=== PATIENT | female | born 1970 | race Caucasian/White ===

== ENCOUNTER 2017-01-27 10:20 | Day surgery (SDC) | payer OTHER ==
--- NOTE | 2017-01-23 09:20 | HP ---
Admitting History and Physical - Primary Care Physician PCP: Kayla Pederson - Admission Chief Complaint: left breast atypia History of Present Illness: 46 yo female noted to have a left palpable mass which corresponded to a left 1 oclock 1.1 cm mass on US. 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 Patient is now presenting for WE of this lesion with NL. History Source: Patient Limitations to Obtaining History: No Limitations - Past Medical History Psych: Yes: Anxiety - Past Surgical History Past Surgical History: Yes: Cholecystectomy (1998), Tubal Ligation (1998) Additional Past Surgical History: bilateral breast augmentation 2014 Home Medications - Allergies Allergies/Adverse Reactions: Allergies Allergy/AdvReac Type Severity Reaction Status Date / Time acetaminophen [From Percocet] Allergy Verified 01/23/17 09:23 oxycodone HCl [From Percocet] Allergy Verified 01/23/17 09:23 Penicillins Allergy Verified 01/23/17 09:23 - Home Medications Home Medications (free text): wellbutrin XL Family Disease History - Family Disease History Family Disease History: CA: Father (hepatic/lung cancer) Other Family History: maternal aunt breast cancer at 48. maternal aunt supervisor detasseling crew cancer ?ovarian cancer. maternal uncle lymphoma. paternal GM leukemia Review of Systems - Review of Systems Constitutional: reports: No Symptoms Cardiovascular: reports: No Symptoms Respiratory: reports: No Symptoms Physical Examination Constitutional: Yes: Well Nourished Cardiovascular: Yes: WNL Respiratory: Yes: WNL Breast(s): Yes: Other (Left axillary tail smooth mass approx 1 cm.) Problem List - Problems (1) Flat epithelial atypia of left breast Code(s): N60.82 - OTHER BENIGN MAMMARY DYSPLASIAS OF LEFT BREAST Assessment/Plan left breast WE with NL
[2017-01-23 16:21] VITALS: BMI 22.1
[2017-01-27] MEDS ORDERED: ONDANSETRON 4 MG/2 ML VIAL IVPB PRN (12:23)
[2017-01-27] MEDS ORDERED: KETOROLAC TROMETHAMINE 30 MG/1 ML VIAL IVPUSH PRN (12:23)
[2017-01-27] MEDS ORDERED: DEXTROSE 5%-0.45% SALINE 1,000 ML IV SCH (12:30)
[2017-01-27] MEDS ORDERED: LIDOCAINE HCL 1%, 10 MG/ML (20ML VIAL) ONE (12:39)
[2017-01-27] MEDS ORDERED: BUPIVACAINE HCL/PF 2.5 MG/ML - 30 ML VIAL IJ ONE (12:39)
[2017-01-27] MEDS ORDERED: MIDAZOLAM HCL 2 MG/2 ML SINGLE DOSE VIAL ONE (12:40)
[2017-01-27] MEDS ORDERED: PROPOFOL 20 ML ONE ×2 (13:02)
[2017-01-27] MEDS ORDERED: SUCCINYLCHOLINE CHLORIDE 200 MG/10 ML VIAL ONE (13:02)
[2017-01-27] MEDS ORDERED: ceFAZolin SODIUM 1 GM VIAL ONE (13:13)
[2017-01-27] MEDS ORDERED: LIDOCAINE HCL 1%, 10 MG/ML (50 mL VIAL) IJ ONE (14:05)
[2017-01-27] MEDS ORDERED: ONDANSETRON 4 MG/2 ML VIAL ONE (14:13)
[2017-01-27] MEDS ORDERED: KETOROLAC TROMETHAMINE 30 MG/1 ML VIAL ONE (14:13)
[2017-01-27] MEDS ORDERED: ONDANSETRON 4 MG/2 ML VIAL IVPUSH PRN (14:14)
[2017-01-27] MEDS ORDERED: PROMETHAZINE HCL 25 MG/1 ML VIAL IVPUSH PRN (14:14)
[2017-01-27] MEDS ORDERED: oxyCODONE HCL 5 MG TABLET PO PRN (14:14)
[2017-01-27] MEDS ORDERED: BUPIVACAINE HCL/PF 0.25% (2.5MG/ML) 10 ML VIAL IJ ONE (14:14)
[2017-01-27] MEDS ORDERED: LACTATED RINGERS SOLUTION 1,000 ML IV SCH (14:15)
[2017-01-27] MEDS ORDERED: oxyCODONE HCL 5 MG TABLET ONE (17:00)
[2017-01-27 19:26] VITALS: BP 118/67
[2017-01-27 19:30] VITALS: PULSE 66; TEMP 98
--- NOTE | 2017-01-28 07:11 | OP ---
DATE OF OPERATION: 01/27/2017 PREOPERATIVE DIAGNOSIS: Left breast atypia. POSTOPERATIVE DIAGNOSIS: Left breast atypia. PROCEDURE: Wide excision of left breast. SURGEON: Kayla Pederson MD SATURATOR OPERATOR: JUANY Hebert ANESTHESIA: Gen. ANESTHESIOLOGIST: Katy Sahu MD SPECIMEN: Left breast mass. ESTIMATED BLOOD LOSS: Minimal. INDICATION FOR PROCEDURE: The patient is a 46-year-old woman with a palpable left breast mass for the last 6 months. Mammogram showed dense breasts, Ultrasound showed a 1.1-cm mass at 1 o'clock corresponding to the mass. 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 She is scheduled for excision today. The procedure, risks, and complications were discussed with her prior to surgery. PROCEDURE: The patient was taken to Breast Imaging where she underwent localization of the clip in the left breast. She was taken to the Ambulatory Surgical Unit where informed consent was obtained. The left breast was identified with a marker. She was taken to the operating room and placed on the operating table in the supine position. She already had sequential compression devices on. She was given antibiotics prior to surgery. General anesthesia was initiated. The left breast was prepped and draped in the usual fashion. A timeout was performed. The skin overlying the mass was infiltrated with 1% lidocaine. There was a guidewire exiting the breast in the left upper outer quadrant. An incision was made overlying the mass. The incision was deepened using electrocautery. The tip of the needle was identified. The mass was grasped with a clamp and electrocautery was used to separate the mass from the surrounding breast tissue. The entire specimen was removed and labeled with silk sutures with a long stitch at the lateral margin and the short stitch at the superior margin. A specimen radiograph did not show the clip and the clip was not found after examining the operative field and sponges. The target was the mass which was removed so the procedure was terminated. The specimen was then placed in formalin and sent to Pathology for further examination. The wound was irrigated and inspected for hemostasis. The incision was closed after infiltrating the skin with 0.25% Marcaine. The deep tissue was closed with interrupted sutures of 3-0 Vicryl. The dermis was closed with interrupted sutures of 3-0 Vicryl. The skin was closed with a running subcuticular closure of 4-0 Monocryl. The wound was cleaned and dressed with a sterile dressing. A surgical bra was applied. The patient was awakened and taken to the recovery area in satisfactory condition. Kev [id number] MTDD
--- NOTE | 2017-02-02 15:09 | PATH ---
Surgical Pathology Report Patient Name: ALFRED SZYMANSKI [facility]. Rec. #: [id number] /Age/Gender: 1970 (Age: 46) / F Account: [id number] Location: [facility] AMBULATORY Taken: 01/27/2017 Received: 01/27/2017 Reported: 02/02/2017 Physicians: Kayla Pederson M.D. Specimen(s) Received LEFT BREAST WIDE EXCISION Clinical History Atypia, fibroadenoma Final Diagnosis BREAST, LEFT, WIDE EXCISION: BENIGN BREAST TISSUE SHOWING FIBROADENOMA. REMAINING BREAST TISSUE SHOWS COLUMNAR CELL CHANGES, ADENOSIS AND FIBROCYSTIC CHANGES INCLUDING CYSTIC APOCRINE METAPLASIA. PRIOR BIOPSY SITE CHANGES ARE PRESENT. Electronically Signed Nisha Rios M.D. Gross Description Received in formalin, labeled "left breast wide excision" is a 4.0 x 4.0 x 0.8 cm portion of harris-yellow fibrofatty tissue is a long stitch designates in lateral aspect and are short stitch designates the superior aspect per surgeon. There is a localizing wire in place. The specimen is inked as follows: Superior and lateral- blue, deep-black, anterior-red, medial-yellow, inferior-green. The specimen is sectioned from superior to inferior to reveal ans area of white fibrous tissue in the superior aspect of the specimen along with a hemorrhagic appearing focus at the tip of the wire and the superior aspect of the specimen. The specimen is submitted entirely in eight cassettes with cassette #1- superior margin in cassette #8-inferior margin. AF/01/30/2017 final/01/30/2017
== END 2017-01-27 18:10 | disposition home or self-care (01) ==
LOC: FASU 10:20
PROVIDERS: ATTEND Surgery
PROC: 0HBU0ZX Excision of Left Breast, Open Approach, Diagnostic (ICD-10-PCS; principal; 2017-01-27 13:18)
DX: D24.2 Benign neoplasm of left breast (principal); N60.92 Unspecified benign mammary dysplasia of left breast; N60.12 Diffuse cystic mastopathy of left breast
CPT/HCPCS: 19281; 88307-TC; 94760